=== PATIENT | male | born 1945 | race American Indian/Alaskan Native ===

== ENCOUNTER 2019-12-03 11:51 | Observation (INO) | payer MEDICARE ==
--- NOTE | 2019-12-03 13:51 | XRay Report ---
CHEST 1 VIEW INDICATION: CP. COMPARISON: 11/14/2018. FINDINGS: Support devices: None. Heart: Moderate cardiomegaly. Lungs/Pleura: No acute air space or interstitial disease. Additional findings: None. IMPRESSION: Moderate cardiomegaly. Signer Name: Fabrizio Miles MD Signed: 12/03/2019 1:46 PM Workstation Name: [id number]
[2019-12-03 14:16] LABS: Basophils % (Auto) 0.3 % (0.0-1.8); Eosinophils % (Auto) 0.2 % (0.0-4.3); Hematocrit 38.2 % (35.5-45.6); Hemoglobin 13.1 gm/dl (11.8-15.2); Lymphocytes # (Auto) 0.9 K/mm3 (1.2-5.4); Lymphocytes % (Auto) 9.3 % (13.4-35.0); Mean Corpuscular HGB Conc 34 % (32-34); Mean Corpuscular Volume 100 fl (84-94); Monocytes # (Auto) 1.1 K/mm3 (0.0-0.8); Monocytes % (Auto) 11.7 % (0.0-7.3); Platelet Count 245 K/mm3 (140-440); Red Blood Count 3.84 M/mm3 (3.65-5.03); Red Cell Distribution Width 13.9 % (13.2-15.2)
[2019-12-03 14:31] LABS: INR 1.06 (0.87-1.13)
[2019-12-03 14:42] LABS: BUN/Creatinine Ratio 16; Blood Urea Nitrogen 14 mg/dL (9-20); Hemolysis Index 5
[2019-12-03] MEDS ORDERED: MORPHINE 4 MG/1 ML INJ IV ONE ×2 (15:32→18:50)
--- NOTE | 2019-12-03 15:34 | Emergency Department Report ---
ED Chest Pain HPI - General Chief Complaint: Chest Pain Stated Complaint: CHEST PAIN Time Seen by Provider: 12/03/19 13:22 Source: family, EMS Mode of arrival: Stretcher Limitations: No Limitations - History of Present Illness Initial Comments: 74-year-old male presents to the emergency department via EMS from home with complaint of some substernal chest pain that woke him from sleep this morning. It was associated with some diaphoresis, nausea without vomiting and some dizziness. He was given sublingual nitroglycerin 3 and a full dose aspirin in route and his pain decreased from an 8 down to a 3. He has a past mental history of coronary artery disease with MT without any cardiac stents, hypertension. His primary care physician is through [facility]. He does not have a crystal lapper. He last had a stress test about 14 months ago. He is a tobacco smoker but denies any illicit drug use. Severity scale (0 -10): 3 - Related Data Previous Rx's Medication Instructions Recorded Last Taken Type Amoxicillin/Potassium Clav 1 each PO BID #14 tablet 11/19/18 Unknown Rx [Augmentin 875-125 Tablet] Apixaban [Eliquis] 5 mg PO Q12H #60 tablet 11/19/18 Unknown Rx Folic Acid [Folvite] 1 mg PO QDAY #30 tablet 11/19/18 Unknown Rx LORazepam [Ativan] 0.5 mg PO QHS #30 tab 11/19/18 Unknown Rx Metoprolol [Lopressor TAB] 100 mg PO BID #60 tablet 11/19/18 Unknown Rx Thiamine [Vitamin B-1] 100 mg PO QDAY #30 tablet 11/19/18 Unknown Rx amLODIPine 5 mg PO QDAY #30 tablet 11/19/18 Unknown Rx Allergies Allergy/AdvReac Type Severity Reaction Status Date / Time No Known Allergies Allergy Unverified 11/14/18 13:34 Heart Score - HEART Score History: Moderately suspicious EKG: Non-specific Age: > 65 Risk factors: > 3 risk factors or hx of atherosclerotic disease Troponin: < normal limit HEART Score: 6 - Critical Actions Critical Actions: 4-6 pts:12-16.6% risk of adverse cardiac event. Should be admitted ED Review of Systems ROS: Stated complaint: CHEST PAIN Other details as noted in HPI Comment: All other systems reviewed and negative Constitutional: diaphoresis. denies: fever Eyes: denies: eye pain, vision change ENT: denies: ear pain, throat pain Respiratory: denies: cough, wheezing Cardiovascular: chest pain. denies: palpitations Gastrointestinal: nausea. denies: abdominal pain, vomiting Genitourinary: denies: dysuria, discharge Musculoskeletal: denies: back pain, arthralgia Skin: denies: rash, lesions Neurological: denies: headache, weakness ED Past Medical Hx - Past Medical History Hx Hypertension: Yes Hx Heart Attack/AMI: Yes - Surgical History Additional Surgical History: right hip r/t trauma - Social History Smoking Status: Current Every Day Smoker Substance Use Type: Alcohol - Medications Home Medications: Home Medications Medication Instructions Recorded Confirmed Last Taken Type Amoxicillin/Potassium Clav 1 each PO BID #14 tablet 11/19/18 Unknown Rx [Augmentin 875-125 Tablet] Apixaban [Eliquis] 5 mg PO Q12H #60 tablet 11/19/18 Unknown Rx Folic Acid [Folvite] 1 mg PO QDAY #30 tablet 11/19/18 Unknown Rx LORazepam [Ativan] 0.5 mg PO QHS #30 tab 11/19/18 Unknown Rx Metoprolol [Lopressor TAB] 100 mg PO BID #60 tablet 11/19/18 Unknown Rx Thiamine [Vitamin B-1] 100 mg PO QDAY #30 tablet 11/19/18 Unknown Rx amLODIPine 5 mg PO QDAY #30 tablet 11/19/18 Unknown Rx ED Physical Exam - General Limitations: No Limitations - Other Other exam information: GENERAL: The patient is well-developed well-nourished. HEENT: Normocephalic. Atraumatic. Patient has moist mucous membranes. EYES: Extraocular motions are intact. Pupils equal and reactive to light bilaterally. NECK: Supple. Trachea is midline CHEST/LUNGS: Clear to auscultation. There is no respiratory distress noted. Chest pain is not reproducible to palpation of the chest wall. HEART/CARDIOVASCULAR: Regular. There is no tachycardia. ABDOMEN: Abdomen is soft, nontender. Patient has normal bowel sounds. There is no abdominal distention. SKIN: Skin is warm and dry. NEURO: The patient is awake, alert, and oriented. The patient is cooperative. The patient has no focal neurologic deficits. Normal speech. MUSCULOSKELETAL: There is no tenderness or deformity. There is no evidence of acute injury. ED Course Vital Signs 12/03/19 12/03/1912/03/20 13:13 13:15 13:20 Temperature 98.2 F Pulse Rate 62 64 62 Respiratory 20 21 18 Rate Blood Pressure 131/78 Blood Pressure 131/78 [Right] O2 Sat by Pulse 100 98 99 Oximetry 12/03/19 12/03/19 12/03/19 13:31 13:45 14:01 Temperature Pulse Rate 63 64 63 Respiratory 22 22 19 Rate Blood Pressure 143/78 138/78 130/71 Blood Pressure [Right] O2 Sat by Pulse 98 97 99 Oximetry 12/03/19 12/03/19 12/03/19 14:15 14:30 14:45 Temperature Pulse Rate 63 63 65 Respiratory 16 17 16 Rate Blood Pressure 136/78 131/75 132/77 Blood Pressure [Right] O2 Sat by Pulse 99 99 98 Oximetry 12/03/19 15:44 Temperature Pulse Rate Respiratory 18 Rate Blood Pressure Blood Pressure [Right] O2 Sat by Pulse Oximetry AMISHA score - Amisha Score Age > 65: (1) Yes Aspirin use within the Past 7 Days: (1) Yes 3 or more CAD Risk Factors: (0) No 2 or more Angina events in past 24 hrs: (1) Yes Known CAD with more than 50% Stenosis: (0) No Elevated Cardiac Markers: (0) No ST Deviation Greater than 0.5mm: (0) No AMISHA Score: 3 ED Medical Decision Making - Lab Data Result diagrams: 12/03/19 13:56 12/03/19 13:56 - EKG Data -: EKG Interpreted by Ri EKG shows normal: sinus rhythm, axis, intervals, QRS complexes, ST-T waves (nonspecific ST-T waves) Rate: normal - EKG Data When compared to previous EKG there are: changes noted (previous EKG showed atrial fibrillation with RVR) Interpretation: nonspecific ST-T wave antonella - Radiology Data Radiology results: image reviewed interpreted by me: Chest x-ray does not show any pneumonia, pneumothorax, focal consolidation, pleural effusions, or any other acute process. - Medical Decision Making This patient presents with some substernal chest pain that woke him from sleep. EKG does not show any signs of ST elevation MT. Chest x-ray is unremarkable. Labs have been unremarkable so far including a negative troponin and negative d- dimer. However the patient does have history of coronary artery disease. He did receive some improvement with multiple doses of nitroglycerin. Patient has a moderate AMISHA score and heart score. It is been about 14 months since the patient last had a stress test. For these reasons the patient will be admitted to the hospital as a chest pain observation and was accepted for admission by the hospitalist, Dr. Swartz. - Differential Diagnosis MT, PE, Costochondritis, GERD Critical Care Time: No Critical care attestation.: If time is entered above; I have spent that time in minutes in the direct care of this critically ill patient, excluding procedure time. ED Disposition Clinical Impression: Acute chest pain, History of coronary artery disease, Chest pain, rule out acute myocardial infarction Disposition: 09 OP ADMIT IP TO THIS HOSP Is pt being admited?: Yes Condition: Fair Time of Disposition: 15:59
[2019-12-03] MEDS ORDERED: MORPHINE 2 MG/1 ML INJ IV ONE (17:57)
[2019-12-03] MEDS ORDERED: MORPHINE 2 MG/1 ML INJ ONE (18:09)
[2019-12-03] MEDS ORDERED: MORPHINE 4 MG/1 ML INJ ONE (18:15)
--- NOTE | 2019-12-03 20:38 | History and Physical Report ---
History of Present Illness Date of admission: 12/03/19 15:59 Chief complaint: Chest pain History of present illness: 74-year-old man who presents to the hospital complaining of chest pain. He states that he had a cold about 10 days ago and it resolved but then he then developed chest pain which he describes as sharp the pain is worse when he lies down and improves when he leans forward. It is not related to exertion it is more so related to position. The pain is severe it is as bad as an 8 and the pain is constant. It is nonradiating. He does not follow with a outside laborer, his last stress test was over a year ago. Past Medical History: hypertension, PAF Past Surgical History: total hip replacement Social history: Current every day smoker, reports that he drinks most days but does not drink heavily every day. Family history: hypertension Medications and Allergies Allergies Allergy/AdvReac Type Severity Reaction Status Date / Time No Known Allergies Allergy Unverified 11/14/18 13:34 Home Medications Medication Instructions Recorded Confirmed Last Taken Type Folic Acid [Folvite] 1 mg PO QDAY #30 tablet 11/19/18 12/03/19 12/03/19 Rx Metoprolol [Lopressor TAB] 100 mg PO BID #60 tablet 11/19/18 12/03/19 12/03/19 Rx Thiamine [Vitamin B-1] 100 mg PO QDAY #30 tablet 11/19/18 12/03/19 12/02/19 Rx amLODIPine 5 mg PO QDAY #30 tablet 11/19/18 12/03/19 12/02/19 Rx Review of Systems All systems: negative (As stated in HPI) Exam - Constitutional Vitals: Temp Pulse Resp BP Pulse Ox 99.0 F 69 18 130/73 98 12/03/19 19:15 12/03/19 19:15 12/03/19 20:21 12/03/19 19:15 12/03/19 19:15 General appearance: Present: mild distress, well-nourished, obese - EENT Eyes: Present: PERRL ENT: hearing intact, clear oral mucosa - Neck Neck: Present: supple, normal ROM - Respiratory Respiratory effort: normal Respiratory: bilateral: CTA - Cardiovascular Heart Sounds: Present: S1 & S2, rub. Absent: click - Extremities Extremities: pulses symmetrical, No edema Peripheral Pulses: within normal limits - Abdominal General gastrointestinal: Present: soft, non-tender, non-distended, normal bowel sounds Male genitourinary: Present: normal - Integumentary Integumentary: Present: clear, warm, dry - Musculoskeletal Musculoskeletal: gait normal, strength equal bilaterally - Psychiatric Psychiatric: appropriate mood/affect, intact judgment & insight - Neurologic Neurologic: CNII-XII intact, moves all extremities Results - Labs CBC & Chem 7: 12/03/19 13:56 12/03/19 13:56 Labs: Laboratory Last Values WBC 9.8 K/mm3 (4.5-11.0) 12/03/19 13:56 RBC 3.84 M/mm3 (3.65-5.03) 12/03/19 13:56 Hgb 13.1 gm/dl (11.8-15.2) 12/03/19 13:56 Hct 38.2 % (35.5-45.6) 12/03/19 13:56 MCV 100 fl (84-94) H 12/03/19 13:56 MCH 34 pg (28-32) H 12/03/19 13:56 MCHC 34 % (32-34) 12/03/19 13:56 RDW 13.9 % (13.2-15.2) 12/03/19 13:56 Plt Count 245 K/mm3 (140-440) 12/03/19 13:56 Lymph % (Auto) 9.3 % (13.4-35.0) L 12/03/19 13:56 Archuleta % (Auto) 11.7 % (0.0-7.3) H 12/03/19 13:56 Eos % (Auto) 0.2 % (0.0-4.3) 12/03/19 13:56 Baso % (Auto) 0.3 % (0.0-1.8) 12/03/19 13:56 Lymph # 0.9 K/mm3 (1.2-5.4) L 12/03/19 13:56 Archuleta # 1.1 K/mm3 (0.0-0.8) H 12/03/19 13:56 Eos # 0.0 K/mm3 (0.0-0.4) 12/03/19 13:56 Baso # 0.0 K/mm3 (0.0-0.1) 12/03/19 13:56 Seg Neutrophils % 78.5 % (40.0-70.0) H 12/03/19 13:56 Seg Neutrophils # 7.7 K/mm3 (1.8-7.7) 12/03/19 13:56 PT 13.9 Sec. (12.2-14.9) 12/03/19 13:56 INR 1.06 (0.87-1.13) 12/03/19 13:56 D-Dimer 226.54 ng/mlDDU (0-234) 12/03/19 16:00 Sodium 141 mmol/L (137-145) 12/03/19 13:56 Potassium 4.4 mmol/L (3.6-5.0) 12/03/19 13:56 Chloride 102.4 mmol/L (98-107) 12/03/19 13:56 Carbon Dioxide 26 mmol/L (22-30) 12/03/19 13:56 Anion Gap 17 mmol/L 12/03/19 13:56 BUN 14 mg/dL (9-20) 12/03/19 13:56 Creatinine 0.9 mg/dL (0.8-1.5) 12/03/19 13:56 Estimated GFR > 60 ml/min 12/03/19 13:56 BUN/Creatinine Ratio 16 % 12/03/19 13:56 Glucose 128 mg/dL (75-100) H 12/03/19 13:56 Calcium 9.0 mg/dL (8.4-10.2) 12/03/19 13:56 Troponin T < 0.010 ng/mL (0.00-0.029) 12/03/19 16:00 - Imaging and Cardiology EKG: image reviewed (Diffuse ST elevations) Assessment and Plan Assessment and plan: 74-year-old man who presents to the hospital with chest pain Chest x-ray: Moderate cardiomegaly Acute pericarditis -Pain medications, NSAIDs, colchicine, echo and cardiology consult Paroxysmal atrial fibrillation with hypercoagulable states Continue rate control medications, aspirin for stroke prophylaxis, cardiology consult Hypertension -Continue BP meds Tobacco abuse/dependence Smoking cessation counseling performed for 10 minutes, nicotine patches when necessary Preventative health counseling performed for 17 minutes Moderate malnutrition; dietitian consult Obesity; lifestyle modification recommended DVT prophylaxis with Lovenox
[2019-12-03] MEDS ORDERED: ONDANSETRON 4 MG/2 ML INJ IV PRN (20:43)
[2019-12-03] MEDS ORDERED: MORPHINE 2 MG/1 ML INJ IV PRN (20:43)
[2019-12-03] MEDS ORDERED: ACETAMINOPHEN 325 MG TAB PO PRN (20:43)
[2019-12-03 21:35] LABS: Basophils # (Auto) 0.1 K/mm3 (0.0-0.1); Basophils % (Auto) 0.9 % (0.0-1.8); Eosinophils # (Auto) 0.1 K/mm3 (0.0-0.4); Eosinophils % (Auto) 0.6 % (0.0-4.3); Hematocrit 40.6 % (35.5-45.6); Hemoglobin 13.6 gm/dl (11.8-15.2); Lymphocytes # (Auto) 1.5 K/mm3 (1.2-5.4); Lymphocytes % (Auto) 17.7 % (13.4-35.0); Mean Corpuscular HGB Conc 34 % (32-34); Mean Corpuscular Volume 100 fl (84-94); Monocytes # (Auto) 1.3 K/mm3 (0.0-0.8); Monocytes % (Auto) 14.5 % (0.0-7.3); Platelet Count 249 K/mm3 (140-440); Red Blood Count 4.06 M/mm3 (3.65-5.03); Red Cell Distribution Width 13.8 % (13.2-15.2)
[2019-12-03 21:46] LABS: BUN/Creatinine Ratio 20; Blood Urea Nitrogen 16 mg/dL (9-20); Calcium 8.9 mg/dL (8.4-10.2); Hemolysis Index 8
[2019-12-03] MEDS: INDOMETHACIN 25 MG CAP PO SCH (22:00)
[2019-12-03] MEDS: ENOXAPARIN 40 MG/0.4 ML INJ SUB-Q SCH (22:00)
[2019-12-03] MEDS: COLCHICINE 0.6 MG CAP PO SCH (22:00)
[2019-12-03] MEDS: METOPROLOL TARTRATE 100 MG TAB PO SCH (22:01)
[2019-12-04] MEDS: INDOMETHACIN 25 MG CAP PO SCH ×3 (06:48→22:24)
[2019-12-04 08:11] LABS: Hematocrit 35.9 % (35.5-45.6); Hemoglobin 12.3 gm/dl (11.8-15.2); Mean Corpuscular HGB Conc 34 % (32-34); Mean Corpuscular Volume 99 fl (84-94); Platelet Count 222 K/mm3 (140-440); Red Blood Count 3.62 M/mm3 (3.65-5.03); Red Cell Distribution Width 13.5 % (13.2-15.2)
[2019-12-04 08:24] LABS: BUN/Creatinine Ratio 24; Blood Urea Nitrogen 17 mg/dL (9-20); Calcium 8.7 mg/dL (8.4-10.2); Hemolysis Index 24
[2019-12-04 10:35] LABS: Basophils % (Manual) 0 % (0.0-1.8); Eosinophils % (Manual) 0 % (0.0-4.3); Total Cells Counted 100
[2019-12-04 10:37] LABS: Platelet Estimate Consistent w Auto; RBC Morphology Normal
[2019-12-04] MEDS: FOLIC ACID 1 MG TAB PO SCH (13:46)
[2019-12-04] MEDS: amLODIPine 5 MG TAB PO SCH (13:46)
[2019-12-04] MEDS: COLCHICINE 0.6 MG CAP PO SCH (13:46)
[2019-12-04] MEDS: NICOTINE 14 MG/24 HR PATCH TD SCH (13:46)
[2019-12-04] MEDS: ASPIRIN EC 325 MG TAB PO SCH (13:46)
[2019-12-04] MEDS: THIAMINE 100 MG TAB PO SCH (13:47)
[2019-12-04] MEDS: METOPROLOL TARTRATE 100 MG TAB PO SCH ×2 (13:51→22:33)
--- NOTE | 2019-12-04 16:23 | Progress Note ---
Assessment and Plan /Acute pericarditis ? - on EKG -placed on Pain medications, NSAIDs, colchicine, - will f/u echo and cardiology recommendation /Paroxysmal atrial fibrillation with hypercoagulable states Continue rate control medications, aspirin for stroke prophylaxis, cardiology consult /Hypertension -Continue BP meds /Tobacco abuse/dependence Smoking cessation counseling performed for 10 minutes, nicotine patches when necessary /Moderate malnutrition; dietitian consult /Obesity; lifestyle modification recommended Brief history: 74-year-old man who presents to the hospital with chest pain and diffuse ST elevation on EKG Chest x-ray: Moderate cardiomegaly Subjective Date of service: 12/04/19 Interval history: Patient seen and examined. Medical records and medication list reviewed. No acute event overnight noted by the RN. Patient denies any chest pain or difficulty breathing. Patient is tolerating diet. Discussed plan of care at bedside with patient. Objective - Exam Narrative Exam: GENERAL: elderly male lying on bed appeared to be in no discomfort. HEENT: Normocephalic. Atraumatic. No conjunctival congestion or icterus. Patient has moist mucous membranes. NECK: Supple. Trachea midline. CHEST/LUNGS: Clear to auscultated bilaterally, breathing nonlabored. No wheezes crackles or rhonchi. HEART/CARDIOVASCULAR: Regular in rate and rhythm. S1 and S2 positive. ABDOMEN: Abdomen is soft, nontender. Patient has normal bowel sounds. SKIN: There is no rash. Warm and dry. NEURO: No focal motor deficit. Follows command. MUSCULOSKELETAL: No joint effusion or tenderness. EXTRIMITY: No edema, no cyanosis or clubbing. PSYCH: Cooperative. - Constitutional Vitals: Vital Signs - 12hr 12/04/19 12/04/19 12/04/19 06:07 08:00 12:00 Temperature 97.7 F Pulse Rate 62 83 Pulse Rate [ 83 Apical] Respiratory 18 20 Rate Blood Pressure 136/74 O2 Sat by Pulse 100 Oximetry 12/04/19 12/04/19 13:46 13:51 Temperature Pulse Rate 66 66 Pulse Rate [ Apical] Respiratory Rate Blood Pressure 146/84 146/84 O2 Sat by Pulse Oximetry - Labs CBC & Chem 7: 12/04/19 07:36 12/04/19 07:36 Labs: Abnormal lab results 12/03/19 12/03/19 12/04/19 Range/Units 21:01 21:01 07:36 RBC 3.62 L (3.65-5.03) M/mm3 MCV 100 H 99 H (84-94) fl MCH 34 H 34 H (28-32) pg Pope % (Auto) 14.5 H (0.0-7.3) % Pope # 1.3 H (0.0-0.8) K/mm3 Monocytes % (Manual) 15.0 H (0.0-7.3) % Monocytes # (Manual) 1.0 H (0.0-0.8) K/mm3 Creatinine (0.8-1.5) mg/dL Glucose 120 H (75-100) mg/dL 12/04/19 Range/Units 07:36 RBC (3.65-5.03) M/mm3 MCV (84-94) fl MCH (28-32) pg Pope % (Auto) (0.0-7.3) % Pope # (0.0-0.8) K/mm3 Monocytes % (Manual) (0.0-7.3) % Monocytes # (Manual) (0.0-0.8) K/mm3 Creatinine 0.7 L (0.8-1.5) mg/dL Glucose 148 H (75-100) mg/dL
--- NOTE | 2019-12-04 17:10 | Consultation ---
History of Present Illness Consult date: 12/04/19 Requesting physician: NEO GANDHI Consult reason: chest pain History of present illness: Mr. Velasco is a 74 y/o male admitted with chest pain that he describes as midsternal pressure. His medical history is significant for hypertension, paroxysmal atrial fibrillation (no AC d/t brief duration of only known episode), tobacco abuse and alcohol use. He is known to our practice from a previous hospitalization. An EKG showed ST-elevation, primarily in the inferior leads, with no reciprocal depression. Troponins negative x4. CXR NAF. On exam, he is currently free of chest pain. Past History Past Medical History: atrial fib (paroxysmal ), hypertension, other Medications and Allergies Allergies Allergy/AdvReac Type Severity Reaction Status Date / Time No Known Allergies Allergy Unverified 11/14/18 13:34 Home Medications Medication Instructions Recorded Confirmed Last Taken Type Folic Acid [Folvite] 1 mg PO QDAY #30 tablet 11/19/18 12/03/19 12/03/19 Rx Metoprolol [Lopressor TAB] 100 mg PO BID #60 tablet 11/19/18 12/03/19 12/03/19 Rx Thiamine [Vitamin B-1] 100 mg PO QDAY #30 tablet 11/19/18 12/03/19 12/02/19 Rx amLODIPine 5 mg PO QDAY #30 tablet 11/19/18 12/03/19 12/02/19 Rx Active Meds: Active Medications Acetaminophen (Tylenol) 650 mg PO Q4H PRN PRN Reason: Pain MILD(1-3)/Fever >100.5/WANG Last Admin: 12/03/19 22:07 Dose: 650 mg Documented by: Amlodipine Besylate (Amlodipine) 5 mg PO QDAY [facility] Last Admin: 12/04/19 13:46 Dose: 5 mg Documented by: Aspirin (Ecotrin) 325 mg PO QDAY [facility] Last Admin: 12/04/19 13:46 Dose: 325 mg Documented by: Atorvastatin Calcium (Lipitor) 40 mg PO QHS [facility] Colchicine (Colchicine) 0.6 mg PO QDAY [facility] Last Admin: 12/04/19 13:46 Dose: 0.6 mg Documented by: Enoxaparin Sodium (Enoxaparin) 40 mg SUB-Q QDAY@2200 [facility] Last Admin: 12/03/19 22:00 Dose: 40 mg Documented by: Folic Acid (Folvite) 1 mg PO QDAY [facility] Last Admin: 12/04/19 13:46 Dose: 1 mg Documented by: Indomethacin (Indocin) 50 mg PO Q8HR [facility] Last Admin: 12/04/19 14:37 Dose: 50 mg Documented by: Metoprolol Tartrate (Metoprolol) 100 mg PO BID [facility] Last Admin: 12/04/19 13:51 Dose: 100 mg Documented by: Morphine Sulfate (Morphine) 2 mg IV Q4H PRN PRN Reason: Pain, Moderate (4-6) Nicotine (Habitrol) 14 mg TD QDAY [facility] Last Admin: 12/04/19 13:46 Dose: 14 mg Documented by: Ondansetron HCl (Zofran) 4 mg IV Q8H PRN PRN Reason: Nausea And Vomiting Sodium Chloride (Sodium Chloride Flush Syringe 10 Ml) 10 ml IV BID [facility] Last Admin: 12/04/19 13:49 Dose: 10 ml Documented by: Sodium Chloride (Sodium Chloride Flush Syringe 10 Ml) 10 ml IV PRN PRN PRN Reason: LINE FLUSH Thiamine HCl (Vitamin B-1) 100 mg PO QDAY [facility] Last Admin: 12/04/19 13:47 Dose: 100 mg Documented by: Review of Systems All systems: negative Physical Examination Last Vital Signs Temp 97.7 F 12/04/19 06:07 Pulse 66 12/04/19 13:51 Resp 20 12/04/19 08:00 BP 146/84 12/04/19 13:51 Pulse Ox 100 12/04/19 06:07 General appearance: no acute distress HEENT: Positive: PERRL Neck: Positive: neck supple Cardiac: Positive: Reg Rate and Rhythm Lungs: Positive: Normal Exam Neuro: Positive: Grossly Intact Abdomen: Positive: Unremarkable Male genitourinary: Positive: deferred Skin: Positive: Clear Musculoskeletal: Normal Range of Motion Extremities: Present: normal Results 12/04/19 07:36 12/04/19 07:36 CBC 12/03/19 12/04/19 Range/Units 21:01 07:36 WBC 8.8 6.7 (4.5-11.0) K/mm3 RBC 4.06 3.62 L (3.65-5.03) M/mm3 Hgb 13.6 12.3 (11.8-15.2) gm/dl Hct 40.6 35.9 (35.5-45.6) % Plt Count 249 222 (140-440) K/mm3 Lymph # 1.5 (1.2-5.4) K/mm3 Summers # 1.3 H (0.0-0.8) K/mm3 Eos # 0.1 (0.0-0.4) K/mm3 Baso # 0.1 (0.0-0.1) K/mm3 Comprehensive Metabolic Panel 12/03/19 12/04/19 Range/Units 21:01 07:36 Sodium 140 137 (137-145) mmol/L Potassium 3.9 4.3 (3.6-5.0) mmol/L Chloride 100.4 101.8 (98-107) mmol/L Carbon Dioxide 28 23 (22-30) mmol/L BUN 16 17 (9-20) mg/dL Creatinine 0.8 0.7 L (0.8-1.5) mg/dL Glucose 120 H 148 H (75-100) mg/dL Calcium 8.9 8.7 (8.4-10.2) mg/dL - Imaging and Cardiology EKG: report reviewed (non-specific ST elevation ) Assessment and Plan Mr. Velasco is a 74 y/o male admitted with CP. ACS ruled out. ST-elevation on EKG appears nonspecific and is not c/w pericarditis d/t quick resolution of chest pain. Etiology of elevations not clear at this time. Will continue to monitor for CP. Continue current cardiac management for now. The patient has been seen in conjunction with Dr. Aguilar, who agrees with the assessment and plan. - Patient Problems (1) Acute chest pain Current Visit: Yes Status: Acute (2) Paroxysmal atrial fibrillation Current Visit: No Status: Chronic (3) Tobacco abuse Current Visit: Yes Status: Chronic (4) Alcohol use Current Visit: Yes Status: Chronic (5) HTN (hypertension) Current Visit: No Status: Chronic Qualifiers: Hypertension type: essential hypertension Qualified Code(s): I10 - Essential (primary) hypertension
--- NOTE | 2019-12-04 18:23 | Event Note ---
Date: 12/04/19 pts cp has resolved. the st seg elevation in the inferior leads on the ecg are not consistent with epicardial injury. trop neg x 4 clinical presentation not consistent with acute pericarditis. consider stress test, but could be done as an outpt
[2019-12-04] MEDS: ENOXAPARIN 40 MG/0.4 ML INJ SUB-Q SCH (22:24)
[2019-12-05] MEDS: INDOMETHACIN 25 MG CAP PO SCH ×2 (06:49→13:59)
[2019-12-05] MEDS ORDERED: REGADENOSON 0.4 MG/5 ML INJ IV ONE (10:13)
--- NOTE | 2019-12-05 13:18 | Discharge Summary ---
Providers - Providers Date of Admission: 12/03/19 15:59 Date of discharge: 12/05/19 Attending physician: MICHAEL TOWNSEND 12/03/19 Consult to Cardiac Rehabilitation [CONS] Routine Reason For Exam: Phase I 12/03/19 20:45 Consult to Physician [CONS] Routine Comment: Consulting Provider: AMIA VAN Physician Instructions: Reason For Exam: pericarditis, CP 12/03/19 20:49 Consult to Dietitian/Nutrition [CONS] Routine Physician Instructions: Reason For Exam: Reason for Consult: Malnutrition Primary care physician: PATTERN CHECKER Hospitalization Condition: Fair Hospital course: 74-year-old man who presents to the hospital with chest pain and diffuse ST elevation on EKG, acute pericarditis was suspected and patient was admitted for further evaluation and management. Chest x-ray: Moderate cardiomegaly MPI stress tests: No reversible ischemia Discharge diagnosis: /Acute chest pain - likely due to costochondritis - Acute pericarditis ? Ruled out - Had ST elevation on inferior leads on EKG - Preserved EF on 2-D echo with negative troponin - MPI stress test was negative - Per cardiology not consistent with acute pericarditis -Initially placed on Pain medications, NSAIDs, colchicine, -Cardiologic consulted and recommended medical management /Paroxysmal atrial fibrillation with hypercoagulable states Continue rate control medications, aspirin for stroke prophylaxis, /Hypertension -Continue BP meds /Tobacco abuse/dependence Smoking cessation counseling performed for 10 minutes, nicotine patches when necessary /Moderate malnutrition; dietitian consult /Obesity; lifestyle modification recommended Physical exam GENERAL: elderly male lying on bed appeared to be in no discomfort. HEENT: Normocephalic. Atraumatic. No conjunctival congestion or icterus. Patient has moist mucous membranes. NECK: Supple. Trachea midline. CHEST/LUNGS: Clear to auscultated bilaterally, breathing nonlabored. No wheezes crackles or rhonchi. HEART/CARDIOVASCULAR: Regular in rate and rhythm. S1 and S2 positive. ABDOMEN: Abdomen is soft, nontender. Patient has normal bowel sounds. SKIN: There is no rash. Warm and dry. NEURO: No focal motor deficit. Follows command. MUSCULOSKELETAL: No joint effusion or tenderness. EXTRIMITY: No edema, no cyanosis or clubbing. PSYCH: Cooperative. Disposition: - TO HOME OR SELFCARE Time spent for discharge: 34 minutes Core Measure Documentation - Palliative Care Palliative Care/ Comfort Measures: Not Applicable - Core Measures Any of the following diagnoses?: none Exam - Constitutional Vitals: Temp Pulse Resp BP Pulse Ox 98.2 F 60 18 147/87 99 12/05/19 08:11 12/05/19 08:11 12/05/19 08:11 12/05/19 08:11 12/05/19 08:11 Plan Activity: advance as tolerated Weight Bearing Status: Weight Bear as Tolerated Diet: low fat, low salt Follow up with: PRIMARY MD REZA [Primary Care Provider] - 3-5 Days DEBBIE CARLSON MD [Staff Physician] - 7 Days Prescriptions: Aspirin [Aspirin BABY CHEW TAB] 81 mg PO QDAY #30 tab.chew Indomethacin [Indocin] 50 mg PO Q8HR PRN #15 capsule PRN Reason: Pain, Moderate (4-6)
[2019-12-05 13:19] VITALS: BP 142/79
--- NOTE | 2019-12-05 13:48 | Progress Note ---
Assessment and Plan S/p lexiscan MPI stress test this AM which was negative. Chest pain resolved. Currently stable cardiac status. Pt may discharge home from cardiology standpoint. Recommend follow up in our office with Dr. Aguilar within 1-2 weeks of discharge ([phone]). The patient has been seen in conjunction with Dr. Aguilar who agrees with the assessment and plan of care. - Patient Problems (1) Chest pain Current Visit: Yes Status: Resolved (2) Paroxysmal atrial fibrillation Current Visit: Yes Status: Chronic (3) Tobacco abuse Current Visit: Yes Status: Chronic (4) Alcohol use Current Visit: Yes Status: Chronic (5) HTN (hypertension) Current Visit: No Status: Chronic Qualifiers: Hypertension type: essential hypertension Qualified Code(s): I10 - Essential (primary) hypertension Subjective Date of service: 12/05/19 Principal diagnosis: cp Interval history: pt for stress test, no current complaints. in SB on tele HR 58bpm. Objective Last Vital Signs Temp 98.2 F 12/05/19 08:11 Pulse 60 12/05/19 08:11 Resp 18 12/05/19 08:11 BP 142/79 12/05/19 12:12 Pulse Ox 99 12/05/19 08:11 - Physical Examination General: No Apparent Distress HEENT: Positive: PERRL Neck: Positive: neck supple Cardiac: Positive: Regular Rhythm, S1/S2 Lungs: Positive: Decreased Breath Sounds Neuro: Positive: Grossly Intact Abdomen: Positive: Unremarkable Skin: Positive: Clear Musculoskeletal: Normal Range of Motion Extremities: Present: normal - Imaging and Cardiology EKG: report reviewed (non-specific ST elevation )
[2019-12-05] MEDS: METOPROLOL TARTRATE 100 MG TAB PO SCH (13:57)
[2019-12-05] MEDS: FOLIC ACID 1 MG TAB PO SCH (13:57)
[2019-12-05] MEDS: COLCHICINE 0.6 MG CAP PO SCH (13:58)
[2019-12-05] MEDS: ASPIRIN EC 325 MG TAB PO SCH (13:58)
[2019-12-05] MEDS: THIAMINE 100 MG TAB PO SCH (13:58)
[2019-12-05] MEDS: amLODIPine 5 MG TAB PO SCH (13:58)
[2019-12-05] MEDS: NICOTINE 14 MG/24 HR PATCH TD SCH (13:59)
--- NOTE | 2019-12-05 22:22 | Treadmill Report ---
NUCLEAR CARDIAC IMAGING REPORT INDICATION FOR PROCEDURE: Chest pain. Informed consent was obtained. Vasodilator stress was achieved with the intravenous administration of 0.4 mg of Lexiscan per protocol. Nuclear cardiac imaging was performed with following the intravenous administration of technetium-99m Myoview per protocol. Gated SPECT imaging demonstrates a post-stress left ventricular ejection fraction of 51% with normal wall motion. Myocardial perfusion imaging demonstrates no significant cavity change between stress and rest. No significant stress induced perfusion defects are seen. Nuclear cardiac imaging demonstrates grossly normal post-stress left ventricular systolic function with no significant evidence of myocardial ischemia or necrosis. JOB# [id number] REYNA/NTS
== END 2019-12-05 17:28 | disposition home or self-care (01) ==
LOC: ED 11:51 → 4A 15:59
PROVIDERS: ADMIT Internal Medicine; ATTEND Internal Medicine
DX: I30.9 Acute pericarditis, unspecified (principal); I48.0 Paroxysmal atrial fibrillation; I25.10 Atherosclerotic heart disease of native coronary artery without angina pectoris; I10 Essential (primary) hypertension; E44.0 Moderate protein-calorie malnutrition; E66.9 Obesity, unspecified; F17.200 Nicotine dependence, unspecified, uncomplicated; Z72.89 Other problems related to lifestyle
CPT/HCPCS: 36415; 71045; 78452; 80048; 84484; 85007; 85025; 85379; 85610; 93005; 93010; 93017; 93306; 96372; 96374; 96376; 99284; 99406; A9270; A9502; G0378; J1650; J2270; J2785